=== PATIENT | male | born 1950 | race Caucasian/White ===

== ENCOUNTER → 2017-05-15 | Outpatient (CLI) | payer MEDICARE, OTHER | LOC: KOH-I 13:00 | DX: E07.9 Disorder of thyroid, unspecified (principal); M89.9 Disorder of bone, unspecified; E04.9 Nontoxic goiter, unspecified | CPT/HCPCS: 73560; 76536 ==

== ENCOUNTER → 2021-05-23 | Outpatient (CLI) | payer MEDICARE, OTHER ==
[~2021-05-23] MED LIST: NORCO 5-325 TA1 EACH PO
== END ==
LOC: EXRD 10:39
DX: E04.2 Nontoxic multinodular goiter (principal)
CPT/HCPCS: 76536